=== PATIENT | female | born 1955 | race Caucasian/White ===

== ENCOUNTER 2016-05-28 03:34 | Emergency (ER) | payer BC ==
[2016-05-28 03:41] VITALS: TEMP 98.1
--- NOTE | 2016-05-28 03:45 | EDPHY ---
H & P Stated Complaint: cough, dyspnea HPI/ROS: HPI CHIEF COMPLAINT: Cough, shortness of breath HISTORY OF PRESENT ILLNESS: This patient very pleasant 60-year-old female she does have significant past medical history for breast cancer she is status post lumpectomy in her right breast and is getting herceptin. She lives in [place] she has been visiting her son out here. She just finished a course of Levaquin 2 days ago for possible upper respiratory tract infection. She presents emergency room at 3:30 a.m. in the morning for progressively worsening shortness of breath and wheezing. She does have significant past medical history for asthma. She has never been intubated. She has never had a DVT or pulmonary embolism. She tells me that she has had echocardiograms due to being on herceptin has had a normal function. She states she has been sick for the past 3 days. For progressive worsening cough and wheezing. She does tell me she has a productive sputum with yellow sputum and she did see some blood in her sputum today. She denies any pleuritic pain, denies chest pain, denies calf pain or abnormal leg swelling. She came to the emergency room at 3:30 a.m. in the morning as she could not catch her breath she was using her albuterol inhaler however is not helping. She did call her doctor to get a Qvar prescription however it is due to be picked up today. Past Medical History: Breast CA, hypertension, asthma Past Surgical History: D and C, right breast lumpectomy, left chest port Social History: Denies drugs alcohol tobacco products, lives in [place] Family History: noncontributory ROS REVIEW OF SYSTEMS: A comprehensive 10 point review of systems is otherwise negative aside from elements mentioned in the history of present illness. Exam Constitutional appears well nontoxic, somewhat anxious, triage nursing summary reviewed, vital signs reviewed, awake/alert. Eyes normal conjunctivae and sclera, EOMI, PERRLA. HENT normal inspection, atraumatic, moist mucus membranes, no epistaxis, neck supple/ no meningismus, no raccoon eyes. Respiratory decreased breath sounds bilaterally, faint wheezing, no crackles, no rales Cardiovascular rate normal, regular rhythm, no murmur, no edema, distal pulses normal. Gastrointestinal soft, non-tender, no rebound, no guarding, normal bowel sounds, no distension, no pulsatile mass. Genitourinary no CVA tenderness. Musculoskeletal no midline vertebral tenderness, full range of motion, no calf swelling, no tenderness of extremities, no meningismus, good pulses, neurovascularly intact. Skin pink, warm, & dry, no rash, skin atraumatic. Neurologic awake, alert and oriented x 3, AAOx3, moves all 4 extremities equally, motor intact, sensory intact, CN II-XII intact, normal cerebellar, normal vision, normal speech. Psychiatric normal mood/affect. Heme/Lymph/Immune no lymphadenopathy. Differential Diagnosis:Includes but is not limited to in a particular order, upper respiratory tract infection, bronchitis, pneumonia, pneumothorax, pulmonary embolism, CHF, doubt acute coronary syndrome Medical Decision Making: On this patient had an IV established, she declined to have her port access, we will give her IV Solu-Medrol, DuoNeb breathing treatment IV fluid bolus. Will obtain a two view chest x-ray she will have blood work including D-dimer. Re-evaluation: EKG interpretation by me on record in [employer] system. Impression time of EKG 4:07 a.m., this is sinus rhythm rate of 73 no acute ischemic changes appreciated. Specifically no ST elevation, ST depression T-wave abnormalities. ED x-ray chest two view: negative for acute cardiopulmonary disease specifically it do not appreciated pneumothorax or pneumonia. Left chest port appears in place. 0626: re-examination at this time this patient is resting comfortably no acute distress. She feels much better after DuoNeb breathing treatment she is breathing very well at this time, no hypoxia, respiratory rate is normal. Current vitals are pulse 75, room air SaO2 duration of 94%, respiratory rate 14. She would like to be discharged home. I will prescribe her a prescription for albuterol inhaler, prednisone 60 mg for 5 days, guaifenesin for decongestion , codeine for cough. She just finished a course of Levaquin her chest x-ray has been reviewed shows no pneumonia. No indication to start her on antibiotics. She has been given strict return precautions she understands return emergency room if she develops any worsening symptoms questions or concerns includes worsening shortness of breath, cough, fever, vomiting or does not feel well. She is due to fly back to [facility] tomorrow where she will meet with her oncologist. She will see them on Wednesday for recheck however if she gets worse she understands return here. Source: Patient - Personal History Current Tetanus/Diphtheria Vaccine: Unsure - Medical/Surgical History Hx Asthma: Yes Hx Chronic Respiratory Disease: No Hx Diabetes: Yes Hx Cardiac Disease: No Hx Renal Disease: No Hx Cirrhosis: No Hx Alcoholism: No Hx HIV/AIDS: No Hx Splenectomy or Spleen Trauma: No Other PMH: PSHx: lumpectomy, has port L ant chest, D&C x2. PMHx: HTN, , diabetes, allergies, asthma - Social History Smoking Status: Never smoked Constitutional: Initial Vital Signs Temperature (C) 36.7 C 05/28/16 03:37 Heart Rate 91 05/28/16 03:37 Respiratory Rate 28 H 05/28/16 03:37 Blood Pressure 153/84 H 05/28/16 03:37 O2 Sat (%) 98 05/28/16 03:37 O2 Delivery Mode Room Air Allergies/Adverse Reactions: lisinopril Allergy (Verified 05/28/16 03:36) thimerosal Allergy (Verified 05/28/16 03:36) triamcinolone Allergy (Verified 05/28/16 03:36) Home Medications: Medication Instructions Recorded Actonel 05/28/16 Albuterol 05/28/16 Albuterol [Proventil Inhaler HFA 1 - 2 puffs IH Q4H #1 mdi 05/28/16 (*)] Anastrozole 05/28/16 Atorvastatin Calcium 05/28/16 Carvedilol 05/28/16 Claritin 05/28/16 Guaifenesin [Guaifenesin ER] 600 mg PO BID #14 tab.er.12h 05/28/16 Hydrocodone/APAP 5/325 [[place] 1 - 2 tab PO Q4H PRN #10 tab 05/28/16 5/325] Losartan Potassium 05/28/16 Qvar 05/28/16 predniSONE 60 mg PO DAILY #15 tab 05/28/16 Medical Decision Making - Data Points Laboratory Results: Laboratory Results 05/28/16 04:00 05/28/16 04:00 05/28/16 04:00 WBC 8.56 10^3/uL (3.80-9.50) RBC 4.10 L 10^6/uL (4.18-5.33) Hgb 12.4 L g/dL (12.6-16.3) Hct 35.5 L % (38.0-47.0) MCV 86.6 fL (81.5-99.8) MCH 30.2 pg (27.9-34.1) MCHC 34.9 g/dL (32.4-36.7) RDW 12.9 % (11.5-15.2) Plt Count 284 10^3/uL (150-400) MPV 9.2 fL (8.7-11.7) Neut % (Auto) 63.4 % (39.3-74.2) Lymph % (Auto) 18.6 % (15.0-45.0) [place] % (Auto) 9.0 % (4.5-13.0) Eos % (Auto) 8.2 H % (0.6-7.6) Baso % (Auto) 0.6 % (0.3-1.7) Nucleat RBC Rel Count 0.0 % (0.0-0.2) Absolute Neuts (auto) 5.43 10^3/uL (1.70-6.50) Absolute Lymphs (auto) 1.59 10^3/uL (1.00-3.00) Absolute Monos (auto) 0.77 10^3/uL (0.30-0.80) Absolute Eos (auto) 0.70 H 10^3/uL (0.03-0.40) Absolute Basos (auto) 0.05 10^3/uL (0.02-0.10) Absolute Nucleated RBC 0.00 10^3/uL (0-0.01) Immature Gran % 0.2 % (0.0-1.1) Immature Gran # 0.02 10^3/uL (0.00-0.10) PT 12.7 SEC (12.0-15.0) INR 0.96 (0.83-1.16) APTT 27.4 SEC (23.0-38.0) D-Dimer 0.40 ug/mLFEU (0.00-0.50) Sodium 138 mEq/L (134-144) Potassium 3.8 mEq/L (3.5-5.2) Chloride 107 mEq/L (97-110) Carbon Dioxide 19 L mEq/l (22-31) Anion Gap 12 mEq/L (8-16) BUN 14 mg/dL (7-23) Creatinine 1.1 H mg/dL (0.6-1.0) Estimated GFR 50 Glucose 110 H mg/dL (70-100) Calcium 9.3 mg/dL (8.5-10.4) Troponin I < 0.012 ng/mL (0-0.034) NT-Pro-B Natriuret Pep 81 pg/mL (0-125) Influenza Typ A,B (DFA) NEGATIVE FOR FLU (NEGATIVE) Medications Given: Discontinued Medications Albuterol/Ipratropium (Duoneb) 3 ml IH EDNOW ONE Stop: 05/28/16 03:55 Last Admin: 05/28/16 04:20 Dose: 3 ml Sodium Chloride (Ns) 1,000 mls @ 0 mls/hr IV ONCE ONE PRN Reason: As Directed Stop: 05/28/16 03:55 Last Admin: 05/28/16 04:11 Dose: 1,000 mls Methylprednisolone Sodium Succinate (Solu-Medrol) 125 mg IVP EDNOW ONE Stop: 05/28/16 03:56 Last Admin: 05/28/16 04:20 Dose: 125 mg Departure - Departure Disposition: Home, Routine, Self-Care Clinical Impression: Bronchitis Condition: Good Instructions: Acute Bronchitis (ED) Additional Instructions: 1. return to the emergency room if there is any worsening symptoms questions or concerns this includes worsening shortness of breath, fever, vomiting. Prescriptions: Guaifenesin [Guaifenesin ER] 600 mg PO BID #14 tab.er.12h Hydrocodone/APAP 5/325 [[place] 5/325] 1 - 2 tab PO Q4H PRN #10 tab PRN Reason: Pain, Moderate Albuterol [Proventil Inhaler HFA (*)] 1 - 2 puffs IH Q4H #1 mdi predniSONE 60 mg PO DAILY #15 tab
[2016-05-28] MEDS ORDERED: IPRATROPIUM/ALBUTEROL 3 ML DEYVIAL IH ONE (03:54)
[2016-05-28] MEDS ORDERED: NS 1,000 ML IV ONE (03:54)
[2016-05-28] MEDS ORDERED: methylPREDNISolone SOD SUCC 125 MG/2 ML VIAL IVP ONE (03:55)
[2016-05-28 04:28] LABS: APTT 27.4 SEC (23.0-38.0); INR 0.96 (0.83-1.16); PROTIME(PATIENT) 12.7 SEC (12.0-15.0)
[2016-05-28 04:31] LABS: ANION GAP 12 mEq/L (8-16); CALCIUM 9.3 mg/dL (8.5-10.4); CARBON DIOXIDE 19 mEq/l (22-31); CHLORIDE 107 mEq/L (97-110); CREATININE 1.1 mg/dL (0.6-1.0); GLOMERULAR FILTRATION RATE 50; GLUCOSE 110 mg/dL (70-100); POTASSIUM 3.8 mEq/L (3.5-5.2); SODIUM 138 mEq/L (134-144)
[2016-05-28 04:37] LABS: % IMMATURE GRANULYOCYTES 0.2 % (0.0-1.1); ABSOLUTE IMMATURE GRANULOCYTES 0.02 10^3/uL (0.00-0.10); ADD DIFF? NO; ADD MORPH? NO; ADD SCAN? NO; ATYPICAL LYMPHOCYTE FLAG 0 (0-99); FRAGMENT RBC FLAG 0 (0-99); HEMATOCRIT 35.5 % (38.0-47.0); HEMOGLOBIN 12.4 g/dL (12.6-16.3); LEFT SHIFT FLG 0 (0-99); LIPEMIA HEMOLYSIS FLAG 90 (0-99); MEAN CELL HEMOGLOBIN 30.2 pg (27.9-34.1); MEAN CELL HEMOGLOBIN CONCENTR. 34.9 g/dL (32.4-36.7); MEAN CELL VOLUME 86.6 fL (81.5-99.8); MEAN PLATELET VOLUME 9.2 fL (8.7-11.7); PLATELET CLUMPS FLAG 0 (0-99); PLATELET COUNT 284 10^3/uL (150-400); RED CELL DISTRIBUTION WIDTH 12.9 % (11.5-15.2)
[2016-05-28 04:44] LABS: TROPONIN I < 0.012 ng/mL (0-0.034)
--- NOTE | 2016-05-28 04:45 | CPEKG ---
Heart Rate: 73 RR Interval: 822 P-R Interval: 180 QRSD Interval: 98 QT Interval: 380 QTC Interval: 419 P [place]: 10 QRS [place]: 29 T Wave [place]: 31 EKG Severity - NORMAL ECG - EKG Impression: SINUS RHYTHM Electronically Signed By: Dee Curtis 28-May-2016 22:32:20
[2016-05-28 06:48] VITALS: BP 134/89; PULSE 70; RESP 16; O2SAT 95
--- NOTE | 2016-05-28 09:21 | DX ---
PA and lateral chest Reason for examination: Shortness of breath. No prior studies are available for comparison. Findings: A left subclavian central venous port is in place. No pneumothorax is seen. The heart size and pulmonary vascularity are normal. Peribronchial thickening is identified. Mild elevation of the r ight hemidiaphragm is seen. No focal pulmonary consolidation is identified. A calcified granuloma is seen at the left lung base. Benign-appearing sclerotic changes seen involving the proximal left humer us. Impression: Query airways disease.
== END 2016-05-28 06:48 | disposition home or self-care (01) ==
DX: J20.9 Acute bronchitis, unspecified (principal); J45.909 Unspecified asthma, uncomplicated; I10 Essential (primary) hypertension; E11.9 Type 2 diabetes mellitus without complications; Z85.3 Personal history of malignant neoplasm of breast
CPT/HCPCS: 96374